=== PATIENT | female | born 1995 | race Caucasian/White ===

== ENCOUNTER 2019-04-30 11:03 | Emergency (ER) | payer BC, MEDICAID, OTHER ==
[~2019-04-30] VITALS: Ht 170.2 cm; Wt 137.8 kg
[~2019-04-30 11:03] MED LIST: AZIT250T PO; CYCL-1 PO; PANT-47 PO
[2019-04-30 11:15] VITALS: BP 148/95
== END 2019-04-30 16:17 | disposition left against medical advice (07) ==
LOC: ER 11:04
DX: R56.9 Unspecified convulsions (principal); Z53.21 Procedure and treatment not carried out due to patient leaving prior to being seen by health care provider

== ENCOUNTER 2021-12-23 21:55 | Emergency (ER) | payer MEDICAID ==
[~2021-12-23] VITALS: Ht 172.7 cm; Wt 133.9 kg
[2021-12-23 22:58] LABS: D-DIMER < 0.19 MG/L FEU (0-0.50)
[2021-12-23 23:44] VITALS: BP 135/89
== END 2021-12-23 23:48 | disposition home or self-care (01) ==
LOC: ER 21:56
DX: M79.662 Pain in left lower leg (principal); F41.9 Anxiety disorder, unspecified; F32.9 Major depressive disorder, single episode, unspecified; K21.9 Gastro-esophageal reflux disease without esophagitis; G62.9 Polyneuropathy, unspecified; Z72.89 Other problems related to lifestyle; Z98.890 Other specified postprocedural states; Z91.018 Allergy to other foods; Z79.899 Other long term (current) drug therapy
CPT/HCPCS: 36415; 85379; 99283